=== PATIENT | male | born 1935 | race Caucasian/White ===

== ENCOUNTER 2019-02-19 22:52 | Observation (INO) | payer MEDICARE ==
[~2019-02-19] VITALS: Ht 180.3 cm; Wt 87.3 kg
[2019-02-19 23:31] LABS: BASOPHILS ABSOLUTE AUTO 0.03 K/mm3 (0.00-0.23); BASOPHILS PERCENT AUTO 0 % (0-2); EOSINOPHILS ABSOLUTE AUTO 0.12 K/mm3 (0.00-0.68); EOSINOPHILS PERCENT AUTO 1 % (0-6); Hemoglobin 14.2 g/dL (13.5-17.5); IMMATURE GRAN ABSOLUTE AUTO 0.03 K/mm3 (0.00-0.10); IMMATURE GRAN PERCENT AUTO 0 % (0-1); LYMPHOCYTES ABSOLUTE AUTO 1.23 K/mm3 (0.84-5.20); LYMPHOCYTES PERCENT AUTO 15 % (21-46); MONOCYTES ABSOLUTE AUTO 0.88 K/mm3 (0.16-1.47); MONOCYTES PERCENT AUTO 11 % (4-13); Mean Corpuscular HGB 29.8 pg (26.0-34.0); Mean Corpuscular HGB Conc 32.3 g/dL (31.5-36.5); Mean Corpuscular Volume 92 fL (80-100); NEUTROPHILS ABSOLUTE AUTO 6.12 K/mm3 (1.96-9.15); NEUTROPHILS PERCENT AUTO 73 % (41-73); Platelet Count 190 K/mm3 (150-400); RDW Coefficient Variation 14.3 % (11.7-14.2); RDW Standard Deviation 48.5 fL (35.1-46.3); Red Blood Cell Count 4.76 M/mm3 (4.30-5.90); White Blood Cell Count 8.41 K/mm3 (4.00-11.30)
[2019-02-19 23:50] LABS: Source, Urine Catheter
[2019-02-19 23:53] LABS: Alanine Aminotransfer (ALT/SGP 32 U/L (12-78); Albumin, Blood 2.5 g/dL (3.4-5.0); Albumin/Globulin Ratio 0.7 (0.8-1.8); Alk Phos 100 U/L (50-136); Anion Gap 6 mmol/L (6-16); Aspartate Aminotrans (AST/SGOT 27 U/L (12-37); Bilirubin, Total 1.2 mg/dL (0.1-1.0); Blood Urea Nitrogen 14 mg/dL (8-24); Bun/Creatinine Ratio 19.1 (12.0-20.0); CO2, Blood 28 mmol/L (21-32); CPK Creatine Kinase 139 U/L (39-308); Calcium, Blood 8.7 mg/dL (8.5-10.1); Chloride, Blood 106 mmol/L (98-108); Creatine Kinase MB Index 2.9 (0.0-4.0); Creatinine, Blood 0.73 mg/dL (0.60-1.20); Ethanol (Alcohol), Blood, Med <3 mg/dL; Globulin, Blood 3.5 g/dL (2.2-4.0); Glomerular Filtration Rate >60 (60-); Glucose, Blood 97 mg/dL (70-99); Magnesium, Blood 2.4 mg/dL (1.6-2.4); Potassium, Blood 3.7 mmol/L (3.5-5.5); Sodium, Blood 140 mmol/L (136-145); Troponin I <0.015 ng/mL (0.000-0.040)
[2019-02-19 23:53] LABS: Appearance, Urine Clear (Clear); Blood, Urine 3+ (Neg); Color, Urine Amber (P-Yellow); Glucose Qualitative, Urine Neg (Neg); Ketones, Urine 1+ (Neg); Leukocyte Esterase, Urine 1+ (Neg); Nitrite, Urine Neg (Neg); Protein, Urine 1+ (Neg); Specific Gravity, Urine 1.025 (1.003-1.022); Urobilinogen, Urine 1+ (Normal)
[2019-02-20] LABS: Base Excess Venous 3.3 mmol/L; Bicarbonate Venous 26.9 mmol/L (24.0-30.0); PCO2 Venous 42.7 mmHg (38-42); PO2 Venous 93.5 mmHg (38-42); pH Blood Venous 7.42 (7.34-7.37)
[2019-02-20 00:06] LABS: Bilirubin, Urine 1+ (Neg)
[2019-02-20 00:07] LABS: Bacteria Mod /hpf; Mucus Light (0-Heavy); Squamous Epithelial Cells Not Seen /hpf (Few)
[2019-02-20 12:04] LABS: Adenovirus F 40/41 Not Detected (NOT DETECT); Astrovirus Not Detected (NOT DETECT); Campylobacter Sp Not Detected (NOT DETECT); Cryptosporidium Not Detected (NOT DETECT); Cyclospora Cayetanensis Not Detected (NOT DETECT); E. Coli O157 Not Detected (NOT DETECT); Entamoeba Histolytica Not Detected (NOT DETECT); Enteroaggregative E. coli-EAEC Not Detected (NOT DETECT); Enteropathogenic E. coli-EPEC Not Detected (NOT DETECT); Enterotoxigenic E. coli-ETEC Not Detected (NOT DETECT); Giardia Lamblia Not Detected (NOT DETECT); Norovirus GI/GII Not Detected (NOT DETECT); Plesiomonas Shigelloides Not Detected (NOT DETECT); Rotavirus A Not Detected (NOT DETECT); Salmonella Sp Not Detected (NOT DETECT); Sapovirus Not Detected (NOT DETECT); Shiga Toxin-prod E. coli-STEC Not Detected (NOT DETECT); Shigella/Enteroin E. coli-EIEC Not Detected (NOT DETECT); Vibrio Cholerae Not Detected (NOT DETECT); Vibrio Sp Not Detected (NOT DETECT); Yersinia Enterocolitica Not Detected (NOT DETECT)
--- NOTE | 2019-02-20 15:04 | NUR ---
Received call from traffic control operator Denise. Karen reports Pt and family has had a discussion regarding Pt's wishes for code status and life sustaining measures. Family and Pt would like to complete a POLST for when family picks Pt up tomorrow. Pt is A&OX3. Pt is unable to give appropriate current year. Pt level of understanding is appropriate to continue conversation. Educated Pt on life sustaining measures including risk factors. Pt chooses DNR and Limited treatment. Assisted Pt in completing POLST and Pt signs POLST. No other concerns reported at this time. Gave POLST form to RENNY Jones to have hospitalist sign. Palliative Care will remain available.
--- NOTE | 2019-02-20 17:59 | NUR ---
ADMIT NOTE/SHIFT SUMMARY RECEIVED REPORT FROM RENNY THOMPSON IN ED. PT TO ROOM VIA GURNEY; 1 PERSON ASSIST TO BED. PT ORIENTED TO ROOM AND CALL LIGHT; EDUCATED ON HIGH FALL RISK AND USE OF CALL LIGHT TO GET UP. PER REPORT PT HAD NOT ANSWERED PHONE IN A COUPLE OF DAYS; DAUGHTER CALLED [facility] FOR WELLFARE CHECK; [facility] FOUND PT DOWN AND CALLED EMS. PT A&Ox4 TO [place] AND PLACE; CANNOT REMEMBER THE PRESIDENT AND STATES THE YEAR IS 1997; PT STATES THAT HE WAS ONLY SUPPOSED TO BE HERE TO GET CHECKED OUT, DOSE NOT RECALL BEING FOUND DOWN. PT DENEIS SOB; CHEST PAIN; GENERALIZED PAIN; DIZZINESS AND LIGHTHEADEDNESS; NAUSEA. PT RECEIVING IV FLUIDS. PT HAVING DIARRHEA; PT RECEIVED IMODIUM IN ED. VSS. NO OTHER ACUTE CHANGES NOTED DURING SHIFT. WILL CONTINUE TO MONITOR UNTIL REPORT GIVEN TO ONCOMING RN.
--- NOTE | 2019-02-20 21:23 | NUR ---
ALERT AT baseline, aware of self, impulsive, pulled IV when got up from bed, alarm was on but even sitting on side of bed he was far enough away to pull IV, assisted to bathroom with walker, currently in bed with alarm on, DNR bracelet in place, cn starting IV, report called to nurse in 330, sitting up watching TV, rm air, calllight on chest, nsr r/PMT, will continue to montior and treat until bring pt to rm 330
--- NOTE | 2019-02-21 02:15 | NUR ---
2129: PT ARRIVED TO RM 336; REPORT RECVED FROM BUCK LAWSON IN PCU. PT AO X1-2 BUT CONFUSED TO WHERE HE IS OR WHY. PT AMBULATED A FEW STEPS TO BED FROM W/C USES A CANE AT HOME IM TOLD. DENIES PAIN, SOB, N/V/D. PER NURSE HAS BEEN RULED OUT FOR C-DIFF/ PT RESTING QUIETLY IN BED. ASSESSMENTS COMPLETED. BED LOW, LOCKED AND ALARMED. CALL [facility]JPUT WITHIN REACH.
[2019-02-21] MEDS ORDERED: Pedi-Dri 100,0060 GM TOP (11:01)
[2019-02-21] MEDS ORDERED: ASPI81CH PO (11:01)
[2019-02-21] MEDS ORDERED: DIAPER RASH57 GM TOP (11:03)
--- NOTE | 2019-02-21 14:30 | NUR ---
PT DISCHARGED FROM UNIT, PT FAMILY TO DRIVE HOME, PT LEFT VIA WHEEL CHAIR. MEDICATIONS FAXED. IV REMOVED. DISCHARGE INSTRUCTIONS REVIEWED AND SENT WITH FAMILY.
== END 2019-02-21 14:06 | disposition home or self-care (01) ==
LOC: ER 22:52 → PCU 22:53 → ERHOLD 22:53 → PCU 02-20 12:45 → MEDS 02-20 22:06 → ENPENDDIS 02-21 13:29 → MEDS 02-21 14:06
PROVIDERS: Emergency Medicine; ADMIT Internal Medicine
DX: F03.90 Unspecified dementia, unspecified severity, without behavioral disturbance, psychotic disturbance, mood disturbance, and anxiety (principal); R53.81 Other malaise; E86.0 Dehydration; R19.7 Diarrhea, unspecified
CPT/HCPCS: 0097U; 36415; 51701; 70450; 71045; 80053; 81001; 82140; 82550; 82553; 82803; 83605; 83735; 84443; 84484; 85025; 87040; 87086; 93005; 93010; 96361-59; 96365-59; 96366-59; 97110; 97116; 97162; 97165; 97535; 99285-25; G0378; G0480; J3411; J3475; J7030; J7042